=== PATIENT | male | born 1965 | race Caucasian/White ===

== ENCOUNTER 2025-03-03 16:41 | Emergency (ER) | payer MEDICARE, SELFPAY ==
[2025-03-03 16:43] VITALS: BP 149/89; PULSE 83; RESP 17; TEMP 36.8; O2SAT 97; BMI 33.7
--- NOTE | 2025-03-03 16:46 | ECG_ITS ---
APPROVED REPORT Exam: Resting ECG HR:84 bpm ECG Measurements Heart Rate 84 AXES IA 320 P -89 QRSd 197 QRS -81 QT 460 T 87 QTc 501 Conclusion ELECTRONIC ATRIAL PACEMAKER ELECTRONIC VENTRICULAR PACEMAKER No STEMI Electronically signed by : AVIVA NUNEZ, 03/03/2025 20:02:28
[2025-03-03 17:01] LABS: Basophils # 0.1 K/mm3 (0-0.2); Basophils % 0.8 % (0.1-2.0); Eosinophils # 0.4 Kmm3 (0.0-0.4); Eosinophils % 5.2 % (0.1-12.0); Hematocrit 46.7 % (42.0-52.0); Hemoglobin 14.8 g/dL (14.1-18.0); Immature Granulocytes # 0.02 10^3uL; Immature Granulocytes % 0.3 %; Lymphocytes % 41.5 % (10-50); Mean Corpuscular HGB Conc 31.7 g/dL (31.8-35.4); Mean Corpuscular Volume 88.4 fl (80-94); Mean Platelet Volume 9.7 fl (7.4-10.4); Monocytes # 0.6 K/mm3 (0.1-1.0); Monocytes % 8.5 % (1.7-9.3); Neutrophils # 3.1 K/mm3 (1.8-7.8); Neutrophils % 43.7 % (37.0-80.0); Nucleated Red Blood Cells # 0 10^3/uL; Nucleated Red Blood Cells % 0 %; Platelet Count 193 K/mm3 (142-424); Red Blood Count 5.28 M/mm3 (4.60-6.20); Red Cell Distribution Width 13.4 % (11.5-17.5); Red Cell Distribution Width-SD 43.2 fL; White Blood Count 7.2 K/mm3 (4.8-10.8)
[2025-03-03 17:10] LABS: Alanine Aminotransferase 59 U/L (12-78); Albumin Level 4.5 g/dl (3.5-5.0); Albumin/Globulin Ratio 1.3 (1.1-1.8); Alkaline Phosphatase 102 U/L (38-126); Anion Gap 9.3 mEq/L (5-15); Aspartate Amino Transferase 58 U/L (17-59); Bilirubin,Total 0.6 mg/dl (0.2-1.3); Blood Urea Nitrogen 25 mg/dl (9-20); Calcium 9.5 mg/dl (8.4-10.2); Carbon Dioxide 31 mmol/L (22.0-30.0); Chloride 105 mmol/L (98-107); Creatinine Clearance Estimated 81 mL/min (50-200); Estimated Glomerular Filt Rate 48 ml/min (>60); GFR (African American) 58 ML/MIN (>60); Globulin 3.4 g/dL (1.3-3.2); Glucose 104 mg/dl (74-100); Potassium 4.3 mmoL/L (3.5-5.1); Sodium 141 mmol/L (136-145); Total Protein,Serum 7.9 g/dl (6.3-8.2)
[2025-03-03 17:24] LABS: Troponin I < 0.01 ng/ml (0.00-0.034)
--- NOTE | 2025-03-03 17:57 | ED_ITS ---
<Statement entered by Elsie Brooks DO - 03/03/25 18:57> I was consulted by the SOL, and we discussed the complexity of the problems being addressed. I approved the treatment and management plan for this patient's care in the emergency department, thus performing a substantive portion of the medical decision making. Elsie Brooks DO Discharge Plan Disposition Patient Disposition: Home, Self-Care Chief Complaint: Arrhythmia/Palpitations Referrals Follow up/Referrals: Provider,Referral, MD [Primary Care Provider] - See instructions Activity Restrictions/Add. Instructions Additional Instructions/Restrictions: You are seen in the emergency department this evening with complaints of hypopressure and palpitations. Take medications as prescribed. Return to the ER if your condition worsens. Clinical Impressions Clinical Impression: Palpitations, Hypertension Instructions Patient Instructions: High Blood Pressure Print Language Print Language: Greenlandic Discharge ED Provider: Elsie Brooks General Adult HPI <Sabrina Baumann APRN - Last Filed: 03/03/25 18:24> General Chief complaint: Arrhythmia/Palpitations Stated complaint: heart palpitations, high b/p, his. of heart issues Time Seen by Provider: 03/03/25 17:49 Mode of Arrival: Ambulatory Source of Information: Patient Description of Symptoms (Recalled from ER Triage Doc. by RN): pt to the ED with HTN and heart palpitations since this morning. pt went to cardiology office this morning with these complaints and called him in amlodipine. pt hasnt gotten meds yet. pt denies any chest pain at this time History of Present Illness HPI narrative: Deniz Deleon is a 60-year-old male who presents emergency room today with complaints of palpitations and high blood pressure. Mr. Mckeon presented to Dr. Santiago's office with cardiology this morning with the same complaints. He states that they took his blood pressure and it was apparently in the 190 systolic. They called him in some amlodipine and sent him home from the office. Patient decided to come evaluated the emergency room as his blood pressure continued to stay elevated at home, did not picker packer his medications at the pharmacy. Denies any chest pain or shortness of breath at this time. Blood pressure noted to be 140s over 80s, heart rate in the 80s. Denies any fever, cough, abdominal pain. No other complaints at this time. Please note that the above description of symptoms, and this electronic medical record under categorization of recalled from ER triage doctor by RN are reflective of an initial nursing assessment, however, is not reflective of my full history and physical exam that was personally taken and clarified. Consequentially, this proceeding description of symptoms, which may include the patient's cauterized chief complaint in the EMR, do not reflect my personal clinical impression, and the ultimate description of the history of present illness stated complaints should be deferred to this section of this note. Unless stated otherwise were congruent with the section of the note, additional signs, symptoms, or incongruence can be interpreted as in or accurate with my clinical impression. Related Data Allergies Allergy/AdvReac Type Severity Reaction Status Date / Time No Known Allergies Allergy Verified 03/03/25 16:47 PFSH <Sabrina Baumann APRN - Last Filed: 03/03/25 18:24> [facility] Disclaimer: The information contained in this section may have been updated after the patient was seen, as this information can be updated by other users. Social History Smoking Status: Smoker, status unknown alcohol intake: never current occupational status: employed Travel in the last 8 weeks?: Inside the [place] <Sabrina Baumann APRN - Last Filed: 03/03/25 18:24> ROS Obtained: Yes Systems reviewed as appropriate & no additional complaints except as documented Physical Exam <Sabrina Baumann APRN - Last Filed: 03/03/25 18:24> General General appearance: alert and in no apparent distress Head Head exam: atraumatic and normocephalic Eye Eye exam: Present PERRL and EOMI Neck Neck exam: Present trachea midline Chest Chest inspection: Present symmetric chest wall rise Respiratory Respiratory exam: Present normal lung sounds bilaterally Cardiovascular Cardiovascular exam: Present regular rate and normal rhythm Abdominal Exam Abdominal exam: Present soft and normal bowel sounds; Absent tenderness Extremities Exam Extremities exam: Present normal inspection and full ROM Neurological Exam Neurological exam: Present alert and oriented X3 Skin Skin exam: Present warm, dry and intact Medical Decision Making <Sabrina Baumann APRN - Last Filed: 03/03/25 18:24> Medical Records Screening: Per USPSTF and CDC recommendations, given the prevalence of disease in our region, it is our hospital?s policy to screen for HIV and viral Hepatitis for all patients aged 18 and over and those with ongoing risk factors. [place] Inquiry Pt receiving controlled substance: No Vital Signs: 03/03/25 16:43 Temperature 98.3 F Temperature Source Oral Pulse Rate [Left Radial] 83 Respiratory Rate 17 Blood Pressure [Right Arm] 149/89 H Blood Pressure Mean [Right Arm] 109 Blood Pressure Source [Right Arm] Automatic Cuff Blood Pressure Position [Right Arm] Sitting 02 Sat by Pulse Oximetry 97 Oxygen Delivery Method Room Air Lab Data Lab Results 03/03/25 16:47: WBC 7.2, RBC 5.28, Hgb 14.8, Hct 46.7, MCV 88.4, MCH 28.0, MCHC 31.7 L, RDW 13.4, Plt Count 193, MPV 9.7, Neut % (Auto) 43.7, Lymph % (Auto) 41.5, Petroleum % (Auto) 8.5, Eos % (Auto) 5.2, Baso % (Auto) 0.8, Neut # (Auto) 3.1, Lymph # (Auto) 3.0, Petroleum # (Auto) 0.6, Eos # (Auto) 0.4, Baso # (Auto) 0.1, Sodium 141, Potassium 4.3, Chloride 105, Carbon Dioxide 31 H, Anion Gap 9.3, BUN 25 H, Creatinine 1.50 H, Estimated Creat Clear 81, Estimated GFR 48 L, Est GFR ( Amer) 58 L, Glucose 104 H, Calcium 9.5, Total Bilirubin 0.6, AST 58, ALT 59, Alkaline Phosphatase 102, Troponin I < 0.01, Total Protein 7.9, Albumin 4.5, Globulin 3.4 H, Albumin/Globulin Ratio 1.3 03/03/25 16:47 03/03/25 16:47 Orders (Tests/Meds): ORDERS Category Date Time Status Complete Blood Count Auto Diff Stat Lab 03/03/25 16:47 Completed Comprehensive Metabolic Panel Stat Lab 03/03/25 16:47 Completed Troponin I Q3H Lab 03/03/25 20:00 Ordered Troponin I Q3H Lab 03/03/25 23:00 Ordered Troponin I Stat Lab 03/03/25 16:47 Completed EKG Request [ECG Request] Stat Y 03/03/25 16:48 Ordered Medical Decision Narrative: In summary patient is an 60-year-old male who presents emergency department for evaluation of palpitations and high blood pressure. Patient is hemodynamically stable upon arrival, afebrile. Physical exam was unremarkable, patient is sinus rhythm on his EKG, no ST elevation or depression noted. Differential diagnosis includes ACS versus pneumonia versus arrhythmia. Initial workup will be conducted with hematologic labs, chest x-ray, EKG. Initial interventions are not indicated at this time as patient has stable vital signs and a stable EKG, with no complaints. Initial workup reviewed by me showed a stable hematologic profile. Patient does have an elevated BUN/creatinine of 25-1.5 which he states is where his baseline renal function is. EKG showed a paced rhythm. Chest x-ray was considered but deferred at this time as patient is not complaining of any shortness of breath, cough, fever, not requiring oxygen. Upon repeat evaluation patient's blood pressure normalized on its own without any medication intervention. Patient tells me that his pharmacy notified him that his prescription was ready to be picked up and he will pick that up and begin taking it this evening.. Given this, patient is appropriate for discharge at this time with no new prescriptions. He knows to go picker packer his prescription for his amlodipine at [facility] this evening. Patient was given return precautions to include but not limited to chest pain, shortness of breath, worsening of any of his symptoms. <Elsie Brooks, DO - Last Filed: 03/03/25 18:05> Vital Signs: 03/03/25 16:43 Temperature 98.3 F Temperature Source Oral Pulse Rate [Left Radial] 83 Respiratory Rate 17 Blood Pressure [Right Arm] 149/89 H Blood Pressure Mean [Right Arm] 109 Blood Pressure Source [Right Arm] Automatic Cuff Blood Pressure Position [Right Arm] Sitting 02 Sat by Pulse Oximetry 97 Oxygen Delivery Method Room Air Lab Data Lab Results 03/03/25 16:47: WBC 7.2, RBC 5.28, Hgb 14.8, Hct 46.7, MCV 88.4, MCH 28.0, MCHC 31.7 L, RDW 13.4, Plt Count 193, MPV 9.7, Neut % (Auto) 43.7, Lymph % (Auto) 41.5, Petroleum % (Auto) 8.5, Eos % (Auto) 5.2, Baso % (Auto) 0.8, Neut # (Auto) 3.1, Lymph # (Auto) 3.0, Petroleum # (Auto) 0.6, Eos # (Auto) 0.4, Baso # (Auto) 0.1, Sodium 141, Potassium 4.3, Chloride 105, Carbon Dioxide 31 H, Anion Gap 9.3, BUN 25 H, Creatinine 1.50 H, Estimated Creat Clear 81, Estimated GFR 48 L, Est GFR ( Amer) 58 L, Glucose 104 H, Calcium 9.5, Total Bilirubin 0.6, AST 58, ALT 59, Alkaline Phosphatase 102, Troponin I < 0.01, Total Protein 7.9, Albumin 4.5, Globulin 3.4 H, Albumin/Globulin Ratio 1.3 Orders (Tests/Meds): ORDERS Category Date Time Status Complete Blood Count Auto Diff Stat Lab 03/03/25 16:47 Completed Comprehensive Metabolic Panel Stat Lab 03/03/25 16:47 Completed Troponin I Q3H Lab 03/03/25 20:00 Ordered Troponin I Q3H Lab 03/03/25 23:00 Ordered Troponin I Stat Lab 03/03/25 16:47 Completed EKG Request [ECG Request] Stat Y 03/03/25 16:48 Ordered ECG Data Tracing #1: I reviewed this ECG and interpreted as documented below: Paced at a rate of [address] changes concerning for STEMI ECG initial impression date: 03/03/25 ECG initial impression time: 16:52 Critical Care <Sabrina Baumann APRN - Last Filed: 03/03/25 18:24> Critical Care Time Critical Care Time: No
[2025-03-03 18:34] VITALS: BP 140/79; PULSE 72; RESP 20; TEMP 36.3; O2SAT 98
== END 2025-03-03 18:35 | disposition home or self-care (01) ==
PROVIDERS: Emergency Provider Emergency Medicine
DX: R00.2 Palpitations (principal); I10 Essential (primary) hypertension
CPT/HCPCS: 80053; 84484; 85025; 93005; 99283

== ENCOUNTER 2025-04-08 16:46 | Emergency (ER) | payer MEDICARE, SELFPAY ==
[2025-04-08] VITALS (9 sets, daily range): BP systolic 130–193; BP diastolic 85–122; PULSE 55–95; RESP 13–18; TEMP 36.9–37.1; O2SAT 93–100; BMI 31.7
--- NOTE | 2025-04-08 16:51 | ECG_ITS ---
APPROVED REPORT Exam: Resting ECG HR:69 bpm ECG Measurements Heart Rate 69 AXES OR 258 P 11 QRSd 188 QRS -38 QT 461 T 47 QTc 481 Conclusion ELECTRONIC ATRIAL PACEMAKER LEFT AXIS DEVIATION [QRS AXIS < -30] RIGHT BUNDLE BRANCH BLOCK [120+ ms QRS DURATION, UPRIGHT V1, 40+ ms S IN I/aVL/V4/V5/V6] SEPTAL MYOCARDIAL INFARCTION , OF INDETERMINATE AGE [40+ ms Q WAVE IN V1/V2] ABNORMAL ECG UNCONFIRMED REPORT Electronically signed by : Christopher Vazuqez, 04/08/2025 21:38:14
--- NOTE | 2025-04-08 16:56 | PC.NURSE ---
Called Radiology and had images powershared to [facility]. Had Disc copy made and printed the scan reulsts for this pt to follow up with her PCP.
--- OUTSIDE RECORDS SUMMARY | 2025-04-08 16:57 | XMS_ITS | Clinical Summary ---
Author Organization [facility] Address [address] [place] [address] Care Team Providers Care Food Service Cashier Name Role Phone Unavailable Primary Care Provider Unavailabl e Allergies No known active allergies Medications allopurinoL (ZYLOPRIM) 100 mg tablet Take 100 mg by mouth Once Daily. Active atorvastatin (LIPITOR) 80 mg tablet Take 80 mg by mouth At bedtime. Active bictegrav-emtr icit-tenofov alafenam (BIKTARVY) 50-200-25 mg tablet Take 1 Tablet by mouth Once Daily. Active buPROPion (WELLBUTRIN) 300 mg XL tablet Take 300 mg by mouth Once Daily. Active clopidogreL (PLAVIX) 75 mg tablet Take 75 mg by mouth Once Daily. Active furosemide (LASIX) 20 mg tablet Take 20 mg by mouth Once Daily. Active lisinopriL (PRINIVIL) 40 mg tablet Take 40 mg by mouth Once Daily. Active rivaroxaban (XARELTO) 20 mg tablet Take 20 mg by mouth Once Daily. Active B complex-vitami n C-folic acid (NEPHROVITE RX) tablet Take 1 Tablet by mouth Once Daily. Active evolocumab (REPATHA SYRINGE) 140 mg/mL Syrg Administer 140 mg subcutaneously Every two weeks. Active levomilnacipra n 80 mg Cs24 Take 80 mg by mouth Once Daily. Active metoprolol (LOPRESSOR) 25 mg tablet Take 12.5 mg by mouth Twice a day. Active Active Problems Problem Noted Date Diagnosed Date Malfunction of electrode lead of cardiac pacemak er 02/06/2025 PAF (paroxysmal atrial fibrillation) 02/05/2025 Tachycardia 02/04/2025 Persistent atrial fibrillation 02/04/2025 S/P ablation of atrial fibrillation 02/04/2025 Overview (02/04/2025): X 2 in [place] Asymptomatic HIV infection, with no history of HIV-related illness 02/04/2025 Encounters Date Type Department Care Team Description 02/05/2025 1:00 PM EDT Office Visit [facility] [address], [address] [place] [address] Larry Lezama MD Tachycardia (Primary Dx); Persistent atrial fibrillation (HCC); S/P ablation of atrial fibrillation; Asymptomatic HIV infection, with no history of HIV-related illness (HCC); PAF (paroxysmal atrial fibrillation) (HCC); Malfunction of electrode lead of cardiac pacemaker 02/05/2025 Travel 01/30/2025 Transcribe Orders Patient [facility] [address] [place] [address] Shahriar Harley MD Unspecified atrial flutter (HCC) (Primary Dx); Presence of cardiac pacemaker from Last 3 Months Social History Tobacco Use Types Packs/Day Years Used Date Smoking Tobacco: Every Day Cigarettes PHQ-2 Answer Date Recorded PHQ-2 SCORE 0 02/05/2025 Sex and Gender Information Value Date Recorded Sex Assigned at Not on file Legal Sex Male 4:09 PM EDT Gender Identity Not on file Sexual Orientation Not on file Last Filed Vital Signs Vital Sign Reading Time Taken Comments Blood Pressure 136/70 02/05/2025 12:49 PM EDT Pulse 80 02/05/2025 12:49 PM EDT Temperature - - Respiratory Rate 18 02/05/2025 12:49 PM EDT Oxygen Saturation 97% 02/05/2025 12:49 PM EDT Inhaled Oxygen Concentration - - Weight 94.3 kg (208 lb) 02/05/2025 12:49 PM EDT Height 182.9 cm (6') 02/05/2025 12:49 PM EDT Body Mass Index 28.21 02/05/2025 12:49 PM EDT Plan of Treatment Upcoming Encounters Date Type Department Care Team (Late st Contact Info) Description 04/17/2025 2:00 PM EDT Hospital Encounter MAIN [facility] [address] [place] [address] Larry Lezama MD [address] [place] [address] [address] [place] [address] 05/19/2025 Hospital Encounter EP Lab [address] [place] [phone] Larry Lezama MD [address] [place] [address] [address] [place] [address] Scheduled Procedures Name Priority Associated Diagnoses Date/Ti me EP/ABL AFIB/PVI PAF (paroxysmal atrial fibrillation) (HCC) Health Maintenance Due Date Last Done Comments COLOGUARD 1965 COLONOSCOPY 1965 Colorectal Screening Combination 1965 FIT 1965 HEP C SCREENING 1965 SIGMOIDOSCOPY 1965 ANNUAL WELLNESS EXAM 02/13/1968 DTAP/TDAP/TD VACCINE (1 - Tdap) 02/13/1984 Shingles Vaccine (Shingrix) (1 of 2) 2015 INFLUENZA VACCINE (#1) 2025 HEP A VACCINE Aged Out No longer elig ible based on patient's age to complete this topic HIB VACCINE Aged Out No longer eligi ble based on patient's age to complete this topic ROTOVIRUS VACCINE Aged Out No longer eligible based on patient's age to complete this topic Procedures Procedure Name Priority Date/Time Associated Diagnosis Comments EKG 12-LEAD Routine 02/05/2025 1:04 PM EDT Persistent atrial fibrillation (HCC) from Last 3 Months Results * 12 Lead EKG Same Visit (02/05/2025 1:04 PM EDT) 02/05/2025 1:04 PM EDT Narrative EPIPHANY - 02/06/2025 2:37 PM EDT [facility] [place] [address] Test Date: 2025-02-05 Pat Name: DENIZ LIMONUE Department: [facility] Room: Gender: Male Money Market Clerk: : 1965 Requested By: LARRY Rich Order Number: [id number] Reading MD: Larry Lezama MD Measurements Intervals [place] Rate: 80 P: 33 WV: 235 QRS: -57 QRSD: 184 T: 29 QT: 424 QTc: 489 Interpretive Statements: ELECTRONIC ATRIAL PACEMAKER RIGHT BUNDLE BRANCH BLOCK [120+ ms QRS DURATION, UPRIGHT V1, 40+ ms S IN I/aVL/V4/V5/V6] LEFT ANTERIOR FASCICULAR BLOCK [QRS AXIS <= -45, QR IN I, RS IN II] SEPTAL MYOCARDIAL INFARCTION [40+ ms Q WAVE IN V1/V2], OF INDETERMINATE AGE INTERPRETATION BASED ON A DEFAULT AGE OF 40 YEARS No previous ECG available for comparison Electronically Signed On 02-06-2025 14:37:29 EDT by Larry Lezama MD Procedure Note Larry Lezama MD - 02/06/2025 [facility] [place] [address] Test Date: 2025-02-05 Pat Name: DENIZ MCKEON Department: [facility] Room: Gender: Male Money Market Clerk: : 1965 Requested By: LARRY Rich Order Number: [id number] Reading MD: Larry Kowalski Measurements Intervals [place] Rate: 80 P: 33 WV: 235 QRS: -57 QRSD: 184 T: 29 QT: 424 QTc: 489 Interpretive Statements: ELECTRONIC ATRIAL PACEMAKER RIGHT BUNDLE BRANCH BLOCK [120+ ms QRS DURATION, UPRIGHT V1, 40+ ms S IN I/aVL/V4/V5/V6] LEFT ANTERIOR FASCICULAR BLOCK [QRS AXIS <= -45, QR IN I, RS IN II] SEPTAL MYOCARDIAL INFARCTION [40+ ms Q WAVE IN V1/V2], OF INDETERMINATEAGE INTERPRETATION BASED ON A DEFAULT AGE OF 40 YEARS No previous ECG available for comparison Electronically Signed On 02-06-2025 14:37:29 EDT by Larry Lezama MD us Larry Lezama MD EKG ORDERABLES Final Resul t EPIPHANY from Last 3 Months Insurance [employer]
--- NOTE | 2025-04-08 17:01 | XR_ITS ---
PROCEDURE INFORMATION: Exam: XR Chest Exam date and time: 04/08/2025 5:20 PM Age: 60 years old Clinical indication: Chest wall pain; Prior surgery; Surgery date: 6+ months; Surgery type: Heart stents; Additional info: Cp SOA TECHNIQUE: Imaging protocol: Radiologic exam of the chest. Views: 1 view. COMPARISON: No relevant prior studies available. FINDINGS: Tubes, catheters and devices: A 2 lead internal cardiac device implanted at the left chest with leads extending to the right heart. Lungs: Pleuroparenchymal scarring of the lung bases with subsegmental atelectasis is present without consolidations or pleural effusions that project above the diaphragm. Pleural spaces: Unremarkable. No pleural effusion. No pneumothorax. Heart/Mediastinum: Unremarkable. No cardiomegaly. Bones/joints: Unremarkable. IMPRESSION: Pleuroparenchymal scarring of the lung bases with subsegmental atelectasis is present without consolidations or pleural effusions that project above the diaphragm.
[2025-04-08 17:05] LABS: Hematocrit 44.3 % (42.0-52.0); Hemoglobin 14.9 g/dL (14.1-18.0); Immature Granulocytes % 0.3 %; Mean Corpuscular HGB Conc 33.6 g/dL (31.8-35.4); Mean Corpuscular Hemoglobin 29.0 pg (27.0-31.2); Mean Corpuscular Volume 86.4 fl (80-94); Nucleated Red Blood Cells % 0 %; Platelet Count 190 K/mm3 (142-424); Red Blood Count 5.13 M/mm3 (4.60-6.20); Red Cell Distribution Width-SD 40.9 fL; White Blood Count 7.0 K/mm3 (4.8-10.8)
--- NOTE | 2025-04-08 17:20 | PC.NURSE ---
Radiology at bed side.
[2025-04-08 17:26] LABS: Alanine Aminotransferase 62 U/L (12-78); Albumin Level 4.8 g/dl (3.5-5.0); Albumin/Globulin Ratio 1.3 (1.1-1.8); Alkaline Phosphatase 119 U/L (38-126); Anion Gap 14.7 mEq/L (5-15); Aspartate Amino Transferase 66 U/L (17-59); Bilirubin,Total 0.6 mg/dl (0.2-1.3); Blood Urea Nitrogen 22 mg/dl (9-20); Calcium 9.9 mg/dl (8.4-10.2); Carbon Dioxide 26 mmol/L (22.0-30.0); Chloride 102 mmol/L (98-107); Creatinine Clearance Estimated 79 mL/min (50-200); Creatinine,Serum 1.50 mg/dl (0.66-1.25); Estimated Glomerular Filt Rate 48 ml/min (>60); GFR (African American) 58 ML/MIN (>60); Globulin 3.7 g/dL (1.3-3.2); Glucose 114 mg/dl (74-100); Potassium 4.7 mmoL/L (3.5-5.1); Sodium 138 mmol/L (136-145); Total Protein,Serum 8.5 g/dl (6.3-8.2)
[2025-04-08 17:36] LABS: NT Pro Brain Natriuretic Pep. 56.0 pg/mL (0-125)
[2025-04-08 17:39] LABS: Troponin I < 0.01 ng/ml (0.00-0.034)
--- NOTE | 2025-04-08 18:18 | ED_ITS ---
<Statement entered by Anabel Vazquez MD - 04/08/25 21:30> I was consulted by the SLO, and we discussed the complexity of the problems being addressed. I approved the treatment and management plan for this patient's care in the emergency department, thus performing a substantive portion of the medical decision making. Anabel Vazquez MD, SHANA, FACEP Discharge Plan Disposition Patient Disposition: Home, Self-Care Prescriptions Prescriptions: No Action atorvastatin 80 mg Tablet 80 mg PO DAILY amiodarone 200 mg Tablet 200 mg PO DAILY clopidogrel 75 mg Tablet 75 mg PO DAILY allopurinol 100 mg Tablet 100 mg PO DAILY levothyroxine 25 mcg Tablet 25 mcg PO DAILY amlodipine 10 mg Tablet 10 mg PO DAILY lisinopril 40 mg Tablet 40 mg PO DAILY bupropion HCl 300 mg Tablet Extended Release 24 Hr 300 mg PO DAILY Xarelto 20 mg Tablet 20 mg PO DAILY metoprolol khoury-hydrochlorothiaz 25-12.5 mg Tablet Extended Release 24 Hr 12.5 tab PO DAILY Fetzima 80 mg Capsule,Extended Release 24 Hr 80 mg PO DAILY Repatha SureClick 140 mg/mL Pen Injector 140 mg SQ DIRECTED Patient Comments: every 2 weeks Biktarvy 50-200-25 mg Tablet 1 tab PO DAILY Referrals Follow up/Referrals: Provider,Referral, [Primary Care Provider, Medical] - See instructions Activity Restrictions/Add. Instructions Additional Instructions/Restrictions: Today you are evaluated in the emergency department. Your workup was overall unremarkable. 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 Please return to the ED for worsening of condition. Clinical Impressions Clinical Impression: Chest pain Instructions Patient Instructions: DI for Chest Pain Print Language Print Language: Albanian Discharge ED Provider: Anabel Vazquez [facility] General Chief Complaint: Chest Pain Stated Complaint: CP Time Seen by Provider: 04/08/25 16:51 Mode of Arrival: Ambulatory Source of Information: Patient and Significant Other Description of Symptoms (Recalled from ER Triage Doc. by RN): PT presents to the ED for evaluation of Chest Pain. Pt stated his pain started 1 hour ago. Pt stated he has a rx for nitro but denies using any. Hx of 4 heart attacks. HX of 8 stints. PT has appt for heart ablation in May. PT has a pacemaker r/t A Fib. PT stated his pain is a 5/10. HX CHF. History of Present Illness HPI narrative: patient is a 60-year-old male PMHx multiple MIs, multiple cardiac stents, history of A-fib (anticoagulated), HLD, HTN who presents to the ED with complaints of chest pain. Rates his chest pain currently a 4 out of 10, at max 8 out of 10. Related Data Home Medications ?Medication ?Instructions ?Recorded ?Confirmed allopurinol 100 mg tablet 100 mg PO DAILY 04/08/2512/02 amiodarone 200 mg tablet 200 mg PO DAILY 04/08/2512/02 amlodipine 10 mg tablet 10 mg PO DAILY 04/08/2512/02 atorvastatin 80 mg tablet 80 mg PO DAILY 04/08/2512/02 bictegravir 50 mg-emtricitabine 1 tab PO DAILY 04/08/25 200 mg-tenofovir alafenam 25 mg tablet (Biktarvy) bupropion HCl 300 mg 24 hr tablet, 300 mg PO DAILY 12/0204/08/25 extended release clopidogrel 75 mg tablet 75 mg PO DAILY 04/08/2512/02 evolocumab 140 mg/mL subcutaneous 140 mg SQ DIRECTE D 04/08/25 04/08/25 pen injector (Repathniles SureGeeick) levomilnacipran 80 mg capsule,24 80 mg PO DAILY 04/08/25 hr,extended release (Fetzima) levothyroxine 25 mcg tablet 25 mcg PO DAILY 04/08/25 0 04/08/25 lisinopril 40 mg tablet 40 mg PO DAILY 04/08/2512/02 metoprolol succ 25 12.5 tab PO DAILY 04/08/25 0 04/08/25 mg-hydrochlorothiazide 12.5 mg tablet,ext.rel 24 hr rivaroxaban 20 mg tablet (Xarelto) 20 mg PO DAILY 12/0204/08/25 Allergies Allergy/AdvReac Type Severity Reaction Status Date / Time No Known Allergies Allergy Verified 03/03/25 16:47 [facility] Disclaimer: The information contained in this section may have been updated after the patient was seen, as this information can be updated by other users. Social History (Updated 03/03/25 @ 18:24 by Sabrina Yund, [employer]) Smoking Status: Current every day smoker alcohol intake: never current occupational status: employed Travel in the last 8 weeks?: Inside the [place] Have you lived/traveled outside US in past 30 days?: No Contact w/someone who lives/traveled outside US past 30 days?: No Exposure to someone with infectious disease in past 14 days?: No Do you have a fever (greater than 100.4 F or 38 C)?: No Have you tested positive for COVID-19?: No Exposed to someone with COVID-19 in past 14 days?: No Do you have a sore throat?: No Do you have a cough?: No Do you have any weakness?: No Do you have any diarrhea?: No Are you experiencing any unusual bleeding?: No Do you have any muscle aches/pain?: No Do you have any abdominal pain?: No Are you experiencing loss of taste or smell?: No ROS Obtained: Yes Systems reviewed as appropriate & no additional complaints except as documented Physical Exam General General appearance: alert and in no apparent distress Head Head exam: atraumatic and normocephalic Eye Eye exam: Present normal appearance and PERRL ENT ENT exam: Present normal exam Neck Neck exam: Present normal inspection Chest Chest inspection: Present normal inspection and symmetric chest wall rise; Absent tenderness Respiratory Respiratory exam: Present normal lung sounds bilaterally Cardiovascular Cardiovascular exam: Present regular rate Abdominal Exam Abdominal exam: Present soft and normal bowel sounds; Absent tenderness Extremities Exam Extremities exam: Present normal inspection and full ROM Back Exam Back exam: Present normal inspection and full ROM Neurological Exam Neurological exam: Present alert and oriented X3 Psychiatric Psychiatric exam: Present normal affect and normal mood Skin Skin exam: Present warm and dry HEART Score HEART Score HEART Score assessment performed?: Yes History (anamnesis): Moderately suspicious ECG: Non-specific disturbance Age: 45-65 years Risk factors: 3 or more risk factors Troponin: </= normal limit HEART Score: 5 Critical Care Critical Care Time Critical Care Time: No Medical Decision Making Logan Inquiry Pt receiving controlled substance: No Logan was queried for this patient: No Vital Signs Vital Signs: 04/08/25 17:01 04/08/25 17:09 04/08/25 17:52 Temperature 98.4 F Temperature Source Oral Pulse Rate 95 H 60 Pulse Rate [Right] 95 H Respiratory Rate 18 18 Blood Pressure 130/86 Blood Pressure [Right Arm] 160/103 H Blood Pressure Mean [Right Arm] 122 02 Sat by Pulse Oximetry 97 99 Oxygen Delivery Method Room Air Room Air 04/08/25 18:30 04/08/25 19:01 04/08/25 19:31 Temperature Temperature Source Pulse Rate 79 55 L 60 Pulse Rate [Right] Respiratory Rate 17 13 18 Blood Pressure 137/93 H 147/113 H 134/85 Blood Pressure [Right Arm] Blood Pressure Mean [Right Arm] 02 Sat by Pulse Oximetry 97 99 100 Oxygen Delivery Method Room Air Room Air 04/08/25 20:01 Temperature Temperature Source Pulse Rate 67 Pulse Rate [Right] Respiratory Rate 18 Blood Pressure 143/90 H Blood Pressure [Right Arm] Blood Pressure Mean [Right Arm] 02 Sat by Pulse Oximetry 93 L Oxygen Delivery Method Lab Data Labs: Lab Results 04/08/25 16:51: WBC 7.0, RBC 5.13, Hgb 14.9, Hct 44.3, MCV 86.4, MCH 29.0, MCHC 33.6, RDW 13.2, Plt Count 190, MPV 9.6, Neut % (Auto) 52.0, Lymph % (Auto) 33.8, Grundy % (Auto) 7.3, Eos % (Auto) 5.6, Baso % (Auto) 1.0, Neut # (Auto) 3.6, Lymph # (Auto) 2.4, Grundy # (Auto) 0.5, Eos # (Auto) 0.4, Baso # (Auto) 0.1, Sodium 138, Potassium 4.7, Chloride 102, Carbon Dioxide 26, Anion Gap 14.7, BUN 22 H, C reatinine 1.50 H, Estimated Creat Clear 79, Estimated GFR 48 L, Est GFR ( Amer) 58 L, Glucose 114 H, Calcium 9.9, Total Bilirubin 0.6, AST 66 H, ALT 62, Alkaline Phosphatase 119, Troponin I < 0.01, NT-Pro-B Natriuret Pep 56.0, Total Protein 8.5 H, Albumin 4.8, Globulin 3.7 H, Albumin/Globulin Ratio 1.3 04/08/25 20:12: Troponin I < 0.01 04/08/25 16:51 04/08/25 16:51 Response Orders (Tests/Meds): ORDERS Category Date Time Status CXR --portable [XR chest portable] Stat Exams 07/02/25 17:01 Completed BNP [NT Pro Brain Natriuretic Pep.] Stat Lab 04/08/25 16:51 Completed CBC w/Auto Diff [Complete Blood Count Auto Diff] Stat Lab 04/08/25 16:51 Completed CMP [Comprehensive Metabolic Panel] Stat Lab 04/08/25 16:51 Completed Trop I [Troponin I] Stat Lab 04/08/25 16:51 Completed Troponin I Q3H Lab 04/08/25 20:12 Completed Troponin I Q3H Lab 04/08/25 23:15 Ordered MDM Narrative Medical Decision Narrative: In summary, patient is a 60-year-old male PMHx multiple MIs, multiple cardiac stents, history of A-fib (anticoagulated), HLD, HTN who presents to the ED with complaints of chest pain. Rates his chest pain currently a 4 out of 10, at max 8 out of 10. Has not taken any medication prior to arrival. Patient states that his chest pain is centrally located, feels like a dull ache and started 1 hour prior to arrival. Patient states he was sitting when the chest pain started. He states this does not feel like when he had his heart attack. Patient states the pain does not radiate into his back, neck or arms. He is not experienced any nausea or vomiting. He has had no recent trauma or falls. He states he has a pacemaker in place. Denies fever, chills, headache, visual disturbances, posterior neck pain, shortness of breath, abdominal pain, vomiting, dysuria. Differential diagnosis include ACS, dissection, pulmonary embolism, pneumonia, pneumothorax, electrolyte abnormality, among others Upon initial evaluation patient is alert, oriented and cooperative. He is hemodynamically stable. Physical exam is unremarkable, no chest wall tenderness. Patient is sinus rhythm. Discussed with patient we will proceed with cardiac workup including chest x- ray, he is agreeable to plan of care at this time. CBC unremarkable for any leukocytosis, stable H&H. CMP remarkable for BUN 22, creatinine 1.50, this is patient's baseline. First troponin < 0.01. While waiting on second troponin, patient states his chest pain has resolved. He remains hemodynamically stable. Informal interpretation of the chest x-ray unremarkable for any acute findings. Second troponin < 0.01. Advised patient his workup is overall unremarkable. He states he remains chest pain-free while in the ED. Given this, I feel the patient is safe to be discharged home. Discussed with patient to follow-up with cardiology. We discussed return precautions to the ED and patient verbalized understanding.
[2025-04-08 20:48] LABS: Troponin I < 0.01 ng/ml (0.00-0.034)
== END 2025-04-08 21:17 | disposition home or self-care (01) ==
PROVIDERS: Nurse Practitioner; Emergency Provider Student in an Organized Health Care Education/Training Program
DX: R07.9 Chest pain, unspecified (principal); F17.210 Nicotine dependence, cigarettes, uncomplicated; I10 Essential (primary) hypertension; I48.0 Paroxysmal atrial fibrillation; E78.5 Hyperlipidemia, unspecified; Z86.79 Personal history of other diseases of the circulatory system; Z79.01 Long term (current) use of anticoagulants
CPT/HCPCS: 71045; 80053; 83880; 84484; 85025; 93005; 99284

== ENCOUNTER 2025-09-23 08:40 | Emergency (ER) | payer MEDICARE, SELFPAY ==
[2025-09-23] VITALS (11 sets, daily range): BP systolic 100–165; BP diastolic 57–109; PULSE 65–91; RESP 14–15; TEMP 36.9; O2SAT 93–99; BMI 31.8
--- NOTE | 2025-09-23 09:03 | XR_ITS ---
FINAL REPORT CLINICAL HISTORY: Fall, left ankle pain/swelling FINDINGS: LEFT ANKLE 2 views of the left ankle were obtained. There is a comminuted, nondisplaced fracture of the distal fibular shaft. Lucency is seen at the posterior malleolus which could be degenerative or represent a nondisplaced fracture. The proximal tibia and fibula are intact. There are mild degenerative changes at the ankle mortise. Calcaneal spurring is noted. The joint spaces are intact. IMPRESSION: Comminuted, nondisplaced fracture of the distal fibular shaft. Lucency at the posterior malleolus which could be degenerative or may represent nondisplaced fracture. Reviewed, Interpreted and Dictated by Christian Mcfarland MD Transcribed by Katy Vela Authenticated and [facility]
--- NOTE | 2025-09-23 09:03 | XR_ITS ---
FINAL REPORT CLINICAL HISTORY: fall, left distal duval pain FINDINGS: LEFT TIBIA AND FIBULA There is a comminuted, nondisplaced fracture of the distal fibular shaft. Lucency is seen at the posterior malleolus which could be degenerative or represent a nondisplaced fracture. The proximal tibia and fibula are intact. There are mild degenerative changes at the ankle mortise. Calcaneal spurring is noted. The joint spaces are intact. IMPRESSION: Comminuted, nondisplaced fracture of the distal fibular shaft. Lucency at the posterior malleolus which could be degenerative or represent nondisplaced fracture. Reviewed, Interpreted and Dictated by Christian Mcfarland MD Transcribed by Katy Vela Authenticated and [facility]
--- NOTE | 2025-09-23 09:03 | XR_ITS ---
FINAL REPORT CLINICAL HISTORY: Fall, forefoot and great toe pain FINDINGS: LEFT FOOT 2 views of the left foot were obtained. Oblique lucency is seen through the first proximal phalanx. Fracture not excluded. Visualized joint spaces are normally aligned. Soft tissues are unremarkable. IMPRESSION: Oblique lucency through the first proximal phalanx. Fracture not excluded. Recommend dedicated views of the first digit. Reviewed, Interpreted and Dictated by Christian Mcfarland MD Transcribed by Katy Vela Authenticated and [facility]
--- NOTE | 2025-09-23 09:04 | HMH.EDGENADL ---
Discharge Plan Disposition Patient Disposition: Home, Self-Care Prescriptions Prescriptions: New oxycodone 5 mg tablet 5 mg PO Q6H PRN (Reason: pain) Qty: 12 0RF No Action atorvastatin 80 mg Tablet 80 mg PO DAILY amiodarone 200 mg Tablet 200 mg PO DAILY clopidogrel 75 mg Tablet 75 mg PO DAILY allopurinol 100 mg Tablet 100 mg PO DAILY levothyroxine 25 mcg Tablet 25 mcg PO DAILY amlodipine 10 mg Tablet 10 mg PO DAILY lisinopril 40 mg Tablet 40 mg PO DAILY bupropion HCl 300 mg Tablet Extended Release 24 Hr 300 mg PO DAILY Xarelto 20 mg Tablet 20 mg PO DAILY metoprolol khoury-hydrochlorothiaz 25-12.5 mg Tablet Extended Release 24 Hr 12.5 tab PO DAILY Fetzima 80 mg Capsule,Extended Release 24 Hr 80 mg PO DAILY Repatha SureClick 140 mg/mL Pen Injector 140 mg SQ DIRECTED Patient Comments: every 2 weeks Biktarvy 50-200-25 mg Tablet 1 tab PO DAILY Referrals Follow up/Referrals: Dre Li DO [Staff Physician, Orthopedics] - See instructions Provider,Referral, MD [Primary Care Provider, Medical] - See instructions Activity Restrictions/Add. Instructions Additional Instructions/Restrictions: Avoid bearing weight on your left leg. use the crutches to help you walk. You can take oxycodone as prescribed to help with your pain. In addition to this you can take Tylenol. Rest and elevate the leg when laying down. I encourage you to call the orthopedic office today to schedule your follow-up on Sunday. If you develop any new or worsening symptoms, such as numbness or tingling or color changes in the toes, or if you become concerned for your health for any reason, return to the emergency department for evaluation. Clinical Impressions Clinical Impression: Fracture of distal end of fibula, Closed fracture of left great toe, Closed fracture of posterior malleolus Print Language Print Language: Kiswahili Discharge ED Provider: Kuldeep Ramires General Adult HPI General Chief complaint: Fall Stated complaint: [email or web address]/[email or web address], pain in Lt leg, syncope, nausea Time Seen by Provider: 09/23/25 08:55 History of Present Illness HPI narrative: Deniz Mckeon is a 60-year-old male with a past medical history of heart failure, coronary artery disease, cardiac stents on Plavix and Xarelto, hypertension, hyperlipidemia who presents to the emergency department after a fall yesterday. Patient states that he was stepping out of his RV and was 2 steps up when he slipped on ice. He states that his left leg got caught behind him and he heard a crack/snap in his left ankle area. He landed on his left side. He denies any head trauma or loss of consciousness. He has been unable to bear weight on his left leg due to pain from the distal left duval to the foot. He took 2 Exer strength Tylenol last night and elevating the leg without relief. He does state that he has been nauseated since the fall but denies any loss of consciousness or neck pain. He denies any chest pain or shortness of breath. Related Data Home Medications ?Medication ?Instructions ?Recorded ?Confirmed allopurinol 100 mg tablet 100 mg PO DAILY 04/08/25 04/08/25 amiodarone 200 mg tablet 200 mg PO DAILY 04/08/25 04/08/25 amlodipine 10 mg tablet 10 mg PO DAILY 04/08/25 04/08/25 atorvastatin 80 mg tablet 80 mg PO DAILY 04/08/25 04/08/25 bictegravir 50 mg-emtricitabine 1 tab PO DAILY 04/08/25 04/08/25 200 mg-tenofovir alafenam 25 mg tablet (Biktarvy) bupropion HCl 300 mg 24 hr tablet, 300 mg PO DAILY 04/08/25 04/08/25 extended release clopidogrel 75 mg tablet 75 mg PO DAILY 04/08/25 04/08/25 evolocumab 140 mg/mL subcutaneous 140 mg SQ DIRECTED 04/08/25 04/08/25 pen injector (Emelina Celaya) levomilnacipran 80 mg capsule,24 80 mg PO DAILY 04/08/25 04/08/25 hr,extended release (Fetzima) levothyroxine 25 mcg tablet 25 mcg PO DAILY 04/08/25 04/08/25 lisinopril 40 mg tablet 40 mg PO DAILY 04/08/25 04/08/25 metoprolol succ 25 12.5 tab PO DAILY 04/08/25 04/08/25 mg-hydrochlorothiazide 12.5 mg tablet,ext.rel 24 hr rivaroxaban 20 mg tablet (Xarelto) 20 mg PO DAILY 04/08/25 04/08/25 Previous Rx's ?Medication ?Instructions ?Recorded oxycodone 5 mg tablet 5 mg PO Q6H PRN pain #12 tabs 09/23/25 Allergies Allergy/AdvReac Type Severity Reaction Status Date / Time No Known Allergies Allergy Verified 03/03/25 16:47 [facility] Disclaimer: The information contained in this section may have been updated after the patient was seen, as this information can be updated by other users. Social History (Updated 03/03/25 @ 18:24 by Sabrina Baumann APRN) Smoking Status: Current every day smoker alcohol intake: never current occupational status: employed Travel in the last 8 weeks?: Inside the [place] Have you lived/traveled outside US in past 30 days?: No Contact w/someone who lives/traveled outside US past 30 days?: No Exposure to someone with infectious disease in past 14 days?: No Do you have a fever (greater than 100.4 F or 38 C)?: No Have you tested positive for COVID-19?: No Exposed to someone with COVID-19 in past 14 days?: No Do you have a sore throat?: No Do you have a cough?: No Do you have any weakness?: No Do you have any diarrhea?: No Are you experiencing any unusual bleeding?: No Do you have any muscle aches/pain?: No Do you have any abdominal pain?: No Are you experiencing loss of taste or smell?: No ROS Obtained: Yes Systems reviewed as appropriate & no additional complaints except as documented Physical Exam General General appearance: alert and in no apparent distress Head Head exam: atraumatic Eye Eye exam: Present normal appearance ENT ENT exam: Present normal external ear exam Neck Neck exam: Present full ROM Chest Chest inspection: Present symmetric chest wall rise Respiratory Respiratory exam: Present normal lung sounds bilaterally; Absent respiratory distress Cardiovascular Cardiovascular exam: Present regular rate and normal rhythm Abdominal Exam Abdominal exam: Present soft; Absent tenderness or guarding exam: Present deferred Extremities Exam Extremities exam: Present normal inspection Expanded Lower Extremity Exam Left: Leg image:  1. Swelling, tenderness. Limited range of motion at the ankle secondary to pain. Bruising noted to the great toe. Sensation grossly intact to the foot. 2+ DP pulses intact. Back Exam Back exam: Present normal inspection Neurological Exam Neurological exam: Present alert and oriented X3 Psychiatric Psychiatric exam: Present normal affect Skin Skin exam: Present warm and dry Medical Decision Making Medical Records Screening: Per USPSTF and CDC recommendations, given the prevalence of disease in our region, it is our hospital?s policy to screen for HIV and viral Hepatitis for all patients aged 18 and over and those with ongoing risk factors. Logan Inquiry Pt receiving controlled substance: Yes Logan was queried for this patient: Yes Risks and benefits of using a controlled substance: were discussed with pt by me Vital Signs: 09/23/25 08:51 09/23/25 09:00 09/23/25 09:30 Temperature 98.4 F Temperature Source Oral Pulse Rate 91 H 78 Pulse Rate [Left Radial] 78 Respiratory Rate 15 Blood Pressure 100/70 L 155/85 H Blood Pressure [Left Arm] 123/81 Blood Pressure Mean [Left Arm] 95 Blood Pressure Source Blood Pressure Source [Left Arm] Automatic Cuff Blood Pressure Position Blood Pressure Position [Left Arm] Sitting 02 Sat by Pulse Oximetry 98 99 98 Oxygen Delivery Method Room Air 09/23/25 10:01 09/23/25 10:30 09/23/25 11:00 Temperature Temperature Source Pulse Rate 86 79 76 Pulse Rate [Left Radial] Respiratory Rate Blood Pressure 149/105 H 165/109 H 145/66 H Blood Pressure [Left Arm] Blood Pressure Mean [Left Arm] Blood Pressure Source Blood Pressure Source [Left Arm] Blood Pressure Position Blood Pressure Position [Left Arm] 02 Sat by Pulse Oximetry 95 97 97 Oxygen Delivery Method Room Air 09/23/25 11:30 09/23/25 12:00 09/23/25 12:30 Temperature Temperature Source Pulse Rate 73 90 79 Pulse Rate [Left Radial] Respiratory Rate Blood Pressure 127/57 L 139/84 120/65 Blood Pressure [Left Arm] Blood Pressure Mean [Left Arm] Blood Pressure Source Blood Pressure Source [Left Arm] Blood Pressure Position Blood Pressure Position [Left Arm] 02 Sat by Pulse Oximetry 95 96 93 L Oxygen Delivery Method 09/23/25 13:00 09/23/25 13:20 Temperature 98.5 F Temperature Source Oral Pulse Rate 65 91 H Pulse Rate [Left Radial] Respiratory Rate 14 Blood Pressure 127/92 H Blood Pressure [Left Arm] Blood Pressure Mean [Left Arm] Blood Pressure Source Automatic Cuff Blood Pressure Source [Left Arm] Blood Pressure Position Sitting Blood Pressure Position [Left Arm] 02 Sat by Pulse Oximetry 93 L Oxygen Delivery Method Room Air Orders (Tests/Meds): ED MEDICATIONS Discontinued Medications Generic Name Dose Route Start Last Admin Trade Name Claudia PRN Reason Stop Dose Admin Ondansetron HCl 4 mg 09/23/25 09:03 09/23/25 09:28 Ondansetron 4mg Odt SL 09/23/25 09:04 4 mg ONCE ONE Administration Oxycodone HCl 5 mg 09/23/25 09:04 09/23/25 09:27 Oxycodone 5mg Immediate Release Tablet PO 09/23/25 09:05 5 mg ONCE ONE Administration Oxycodone HCl 5 mg 09/23/25 10:58 09/23/25 11:05 Oxycodone 5mg Immediate Release Tablet PO 09/23/25 10:59 5 mg ONCE ONE Administration ORDERS Category Date Time Status Ankle XR - Left 2 Views [XR ankle LT 2V] Stat Exams 09/23/25 09:03 Completed Fibula/tibia XR left 2 views [XR tibia fibula LT 2V] Exams 09/23/25 09:03 Completed Stat Foot XR left 2 views [XR foot LT 2V] Stat Exams 09/23/25 09:03 Completed Medical Decision Narrative: Deniz Mckeon is a 60-year-old male with a past medical history of heart failure, coronary artery disease, cardiac stents on Plavix and Xarelto, hypertension, hyperlipidemia who presents to the emergency department after a fall yesterday. Patient states that he was stepping out of his RV and was 2 steps up when he slipped on ice. He states that his left leg got caught behind him and he heard a crack/snap in his left ankle area. He landed on his left side. He denies any head trauma or loss of consciousness. He has been unable to bear weight on his left leg due to pain from the distal left duval to the foot. He took 2 Exer strength Tylenol last night and elevating the leg without relief. He does state that he has been nauseated since the fall but denies any loss of consciousness or neck pain. He denies any chest pain or shortness of breath. On arrival, patient is hemodynamically stable, afebrile, breathing comfortably on room air with appropriate oxygen saturation. Physical exam, stated above, revealed a nontoxic-appearing male in no distress. He has tenderness, swelling to the distal left anterior duval and bilateral malleoli and forefoot. He has tenderness and bruising to the left great toe. Sensation is grossly intact to the foot. Pulses intact. Limited range of motion at the ankle secondary to pain. He has a small superficial abrasion over the left patellar area but nontender proximal to the duval. Cardiopulmonary exam is unremarkable. He has no midline cervical spine tenderness and no evidence of head trauma. Differential diagnosis includes, but is not limited to: Fracture, dislocation, soft tissue injury, among others. The most morbid conditions were considered and workup was based on these. Will obtain x-ray imaging of the left tib-fib, ankle and foot and administer 5 mg of oxycodone as well as 4 mg sublingual Zofran. X-ray imaging was interpreted by me personally. Patient has a comminuted nondisplaced fracture of the distal fibular shaft. Likely posterior malleolus fracture. Patient also has fracture of the proximal phalanx of the left first toe. See final radiology reports for details. On reassessment, patient remains in stable condition. I did discuss patient's case with SOL Pace with Dr. Li's orthopedic service. She agrees with plan to place patient in a short leg splint with stirrups and to follow-up tomorrow or Sunday morning. Patient was placed into a short leg splint with stirrups. See procedure note for details. Patient tolerated this well and had no numbness or tingling or color changes to his toes. Will prescribe a short course of oxycodone for pain and recommended continue Tylenol. Patient to call orthopedic office to schedule time early next week for follow-up appointment as he says he cannot go tomorrow due to other doctor appointments. Patient was given strict return precautions and provided crutches. All questions were answered. He was then discharged from the emergency department in stable condition. Procedures Orthopedic Splinting/Casting Injury #1: Side: left Lower Extremity Injury Location: lower leg Lower Extremity Immobilizer: posterior splint and stirrup splint Other Orthopedic Equipment: crutches Post Cast/Splinting Neuro Status: intact Post Cast/Splinting Vasc Status: intact Critical Care Critical Care Time Critical Care Time: No
[2025-09-23] MEDS: OXYCODONE 5MG IMMEDIATE RELEASE TABLET 5 MG PO ×2 (09:27→11:05)
[2025-09-23] MEDS: ONDANSETRON 4MG ODT 4 MG SL (09:28)
--- OUTSIDE RECORDS SUMMARY | 2025-09-23 09:38 | XMS_ITS | Patient Health Record ---
Author Organization [facility] Address [address] [place] [address] Care Team Providers Care Media Consultant Name Role Phone UNKNOWN, PCP Primary Care Provider JULIEN Sandoval Unavailable Unavailable Allergies No Known Allergies Reason For Referral No Information Medications Medication SIG (Take, Route, Frequency, Duration) Notes Start Date End Date Status Carvedilol 25 MG 1 tablet with food Orally Twice a day Active Digoxin 125 MCG 1 tablet Orally Active Atorvastatin Calcium 80 MG 1 tablet Oral ly Once a day Active hydroCHLOROthiazide 12.5 MG 1 capsule in the morning Orally Once a day Active Vascepa 1 GM 2 capsules with meal s Orally Twice a day Active Xarelto 20 MG 1 tablet with food Orally Once a day Active Fetzima 80 MG 1 capsule Orally Onc e a day Active Biktarvy 50-200-25 MG 1 Tablet Orally On ce daily Active Multivitamin - 1 tablet Orally Once a day; Duration: 30 day(s) Active Clopidogrel Bisulfate 75 MG 1 tablet Ora lly Once a day Active Lisinopril 40 MG 1 tablet Orally Once a day Active Verapamil HCl ER 240 MG 1 capsule Orally Once a day Active buPROPion HCl ER (XL) 300 MG 1 tablet in the morning Orally Once a day Active Allopurinol 100 MG 1 tablet Orally Once a day Active Ezetimibe 10 MG 1 tablet Orally Once a day Active Social History Tobacco Use: Social History Observation Description Date Details (start date - stop date) Current Smoker NA - NA Tobacco Use (smoking): Question Answer Notes Are you a current smoker How often do you smoke cigarettes? every day How many cigarettes a day do you smoke? -20 Alcohol Screening: Question Answer Notes Did you have a drink contain ing alcohol in the past year? Yes How often did you have a dri nk containing alcohol in the past year? 2 to 4 times a month (2 points) Points 2 Interpretation Negative Problems Problem Type SNOMED Code ICD Code Onset Dates Problem Status W/U Status Risk Notes Problem Essential hypertension (14924130) Essential (primary) hypertension (I10) Active confirmed Problem Cardiac pacemaker in situ (170469100) Pacemaker (Z95.0) Active confirmed Problem Hyperlipidaemia (05413213) Hyperlipidemia, unspecified hyperlipidemia type (E78.5) Active confirmed Problem Multiple premature ventricular complexes (disorder) (980772852) PVCs (premature ventricular contractions) (I49.3) Active confirmed Problem Sinus node dysfunction (29969755) Sinus node dysfunction (I49.5) Active confirmed Problem Gout (65395214) Gout, unspecifie d cause, unspecified chronicity, unspecified site (M10.9) Active confirmed Problem Human immunodeficiency virus infection (62760066) HIV infection, unspecified symptom status (B20) Active confirmed Problem Persistent atrial fibrillation (957995996) Persistent atrial fibrillation (I48.19) Active confirmed Problem Atherosclerotic heart disease of kiana coronary artery without angina pectoris (823871675231801) Coronary artery disease involving kiana coronary artery of kiana heart, unspecified whether angina present (I25.10) Active confirmed Plan Of Treatment Future Test Test Name Order Date CCL COMP EPS W/INDUCTION ATTEMPT (88281) 12/29/2022 CT PULMONARY VEIN STUDY (CARPULVNMP) 755 72 12/29/2022 Insurance Providers Payer Name Payer Address Payer Phone Subscriber Number Group Number Insured Name Patient Relationship to Insured Coverage Start Date Coverage End Date [employer] MED[employer]ARE [employer]AGE [address] [place] [address] [id number] THIEN DUKES Self - patient is the insured Medical (General) History Medical History History ICD Code HTN sinus node dysfunction cardiac pacemaker hyperlipidemia CAD ID x 3 (9 stents as of 2022) right bundle branch block ventricular premature beats AV junctional rhythm HIV positive peripheral venous insufficiency Surgical History Surgery Date(Month/Year) lumbar laminectomy PCI 05/03/2019 PVC ablation 02/09/2014 PCI 02/09/2010 PCI 02/02/2010 [employer] ICD Hospitalization History Reason Date(Month/Year) see surgical history
--- OUTSIDE RECORDS SUMMARY | 2025-09-23 09:38 | XMS_ITS | Encounter Summary ---
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 Name Role Phone Unavailable Primary Care Provider Unavailabl e Reason for Referral * Radiology Services (Routine) - Pending Review Specialty Diagnoses / Procedures Referred By Contac t Referred To Contact Diagnoses Persistent atrial fibrillation (HCC) Procedures CT Angiogram Chest W WO Contrast Larry Lezama MD [address] [place] [address] [place] [address] Phone: tel: fax: Referral ID Status Reason Start Date Expiration Date V isits Requested Visits Authorized [id number] Pending Review 05/11/2025 05/11/2026 1 1 Reason for Visit * Reason Onset Date Comments Other 05/11/2025 Encounter Details Date Type Department Care Team (Late st Contact Info) Description 05/11/2025 Telephone [facility] [address], [address] [place] [address] Larry Lezama MD [address] [place] [address] [place] [address] Other Social History Tobacco Use Types Packs/Day Years Used Date Smoking Tobacco: Every Day Cigarettes PHQ-2 Answer Date Recorded PHQ-2 SCORE 0 02/05/2025 Sex and Gender Information Value Date Recorded Sex Assigned at Not on file Legal Sex Male 4:09 PM EDT Gender Identity Not on file Sexual Orientation Not on file documented as of this encounter Miscellaneous Notes * Telephone Encounter - Tanner Gonzales PA-C - 05/11/2025 3:01 PM EDT Ordered and faxed via [facility]. * Telephone Encounter - Karlie Read LPN - 05/11/2025 2:48 PM EDT Spoke with patient and advised that he will get contacted closer to procedure date for time of arrival- voiced understanding. * Telephone Encounter - Antonette Lozano - 05/11/2025 11:47 AM EDT Pt is asking if he can have a CTA w /wo contrast done at [facility] ? Pt is asking us to fax CTA order to [facility]. Ablation is scheduled for 05/19. Please advise. [phone], let pt know when faxed , [facility] Pt is also asking what time to be here for ablation 05/19. documented in this encounter Plan of Treatment Upcoming Encounters Date Type Department Care Team (Late st Contact Info) Description 09/24/2025 11:00 AM EST Office Visit [facility] [address], [address] [place] [address] Tanner Gonzales PA-C [address] [place] [address] Larry Lezama MD [address] [place] [address] Scheduled Orders Name Type Priority Associated Diagnoses Orde r Schedule CT Angiogram Chest W WO Contrast Imaging Routine Persistent atrial fibrillation (HCC) 1 Occurrences starting 05/11/2025 until 05/11/2026 documented as of this encounter Visit Diagnoses Diagnosis Persistent atrial fibrillation (HCC)- Primary Atrial fibrillation documented in this encounter
--- OUTSIDE RECORDS SUMMARY | 2025-09-23 09:39 | XMS_ITS | Clinical Summary ---
Author Organization [facility] Address [address] [place] [address] Care Team Providers Care Talent Acquisition Lead Name Role Phone Unavailable Primary Care Provider [...] mg by mouth Twice a day. Active amLODIPine (NORVASC) 10 mg tablet Take 10 mg by mouth Once Daily. Active amiodarone (CORDARONE) 200 mg tabletIndicati ons:PAF (paroxysmal atrial fibrillation) (HCC) Take 0.5 Tabs by mouth Once Daily. Active Active Problems Problem Noted Date Diagnosed Date Malfunction of electrode lead of cardiac pacemak er 02/06/2025 PAF (paroxysmal atrial fibrillation) 02/05/2025 Tachycardia 02/04/2025 Persistent atrial fibrillation 02/04/2025 S/P ablation of atrial fibrillation 02/04/2025 Overview (02/04/2025): X 2 in [place] Asymptomatic HIV infection, with no history of HIV-related illness 02/04/2025 Encounters Date Type Department Care Team Description 09/21/2025 Travel 06/26/2025 1:00 PM EDT Office Visit [facility] [address], [address] [place] [address] Tanner Gonzales PA-C PAF (paroxysmal atrial fibrillation) (HCC) (Primary Dx); S/P ablation of atrial fibrillation; Typical atrial flutter ([facility]); S/P ablation of atrial flutter 06/26/2025 Travel from Last 3 Months Family History Medical History Relation Name Comments Diabetes Father Hypertension Father Stroke Father Cancer Mother Heart Disease Mother Cancer Sister 1 Ms Sister 2 Relation Name Status Comments Father Mother Alive Sister 1 Alive Sister 2 Alive Social History Tobacco Use Types Packs/Day Years Used Date Smoking Tobacco: Every Day Cigarettes Tobacco Cessation:Ready to Q uit: Not Asked; Counseling Given: Not Answered Alcohol Use Standard Drinks/Week Comments Yes 0 (1 standard drink = 0.6 oz pur e alcohol) RARELY PHQ-2 Answer Date Recorded PHQ-2 SCORE 0 02/05/2025 Humiliation, Afraid, Rape, and Kick questionnair e Answer Date Recorded Within the last year, have y ou been afraid of your partner or ex-partner? No 05/19/2025 Within the last year, have y ou been humiliated or emotionally abused in other ways by your partner or ex-partner? No Within the last year, have y ou been kicked, hit, slapped, or otherwise physically hurt by your partner or ex-partner? No 05/19/2025 Within the last year, have y ou been raped or forced to have any kind of sexual activity by your partner or ex-partner? No 05/19/2025 Hunger Vital Sign Answer Date Recorded Within the past 12 months, y ou worried that your food would run out before you got the money to buy more. Never true 05/19/20 25 Within the past 12 months, t he food you bought just didn't last and you didn't have money to get more. Never true 05/19/2025 PRAPARE - Transportation Answer Date Re corded In the past 12 months, has l ack of transportation kept you from medical appointments or from getting medications? No 05/08 In the past 12 months, has l ack of transportation kept you from meetings, work, or from getting things needed for daily living? No 05/19/2025 Housing Stability Vital Sign Answer Andrew e Recorded In the last 12 months, was t here a time when you were not able to pay the mortgage or rent on time? No 05/19/2025 Number of Times Moved in the Last Year Not on fi le 05/19/2025 At any time in the past 12 m [facility], were you homeless or living in a mcc (including now)? No 05/19/2025 [facility] Utilities Answer Date Recorded In the past 12 months has th e electric, gas, oil, or water company threatened to shut off services in your home? No 05/19/2025 Sex and Gender Information Value Date Recorded Sex Assigned at Not on file Legal Sex Male 4:09 PM EDT Gender Identity Not on file Sexual Orientation Not on file Last Filed Vital Signs Vital Sign Reading Time Taken Comments Blood Pressure 130/82 06/26/2025 12:54 PM EDT Pulse 94 06/26/2025 12:54 PM EDT Temperature 36.7 C (98.1 F) 05/19/2025 12:27 PM EDT Respiratory Rate 18 06/26/2025 12:54 PM EDT Oxygen Saturation 96% 06/26/2025 12:54 PM EDT Inhaled Oxygen Concentration - - Weight 108.4 kg (239 lb) 06/26/2025 12:54 PM EDT Height 182.9 cm (6') 05/18/2025 2:58 PM EDT Body Mass Index 32.41 05/18/2025 2:58 PM EDT Plan of Treatment Upcoming Encounters Date Type Department Care Team (Late st Contact Info) Description 09/24/2025 11:00 AM EST Office Visit [facility] [address], [address] [place] [id number] Tanner Gonzales, PAMarryC [address] [facility] [address] [place] [address] Larry Lezama MD [address] [place] [address] [address] [place] [address] Health Maintenance Due Date Last Done Comments COLOGUARD 1965 COLONOSCOPY 1965 Colorectal Screening Combination 1965 FIT 1965 HEP C SCREENING 1965 SIGMOIDOSCOPY 1965 ANNUAL WELLNESS EXAM 02/13/1968 DTAP/TDAP/TD VACCINE (1 - Tdap) 02/13/1984 Shingles Vaccine (Shingrix) (1 of 2) 2015 INFLUENZA VACCINE (#1) 2025 09/01/2022 CT Colonography Completed HEP A VACCINE Aged Out No longer elig ible based on patient's age to complete this topic HIB VACCINE Aged Out No longer eligi ble based on patient's age to complete this topic ROTOVIRUS VACCINE Aged Out No longer eligible based on patient's age to complete this topic Procedures Procedure Name Priority Date/Time Associated Diagnosis Comments EKG 12-LEAD Routine 06/26/2025 1:03 PM EDT PAF (paroxysmal atrial fibrillation) (HCC) from Last 3 Months Results * 12 Lead EKG Same Visit (06/26/2025 1:03 PM EDT) 06/26/2025 1:03 PM EDT Narrative EPIPHANY - 07/01/2025 8:49 AM EDT [facility] [address] [address] Test Date: 2025-06-26 Pat Name: DENIZ MCKEON Department: [facility] Room: Gender: Male Kiln Remover: : 1965 Requested By: TANNER Flores Order Number: [id number] Jessica MD: Latrice Taveras MD Measurements Intervals [place] Rate: 76 P: 0 VT: 0 QRS: -28 QRSD: 176 T: 34 QT: 434 QTc: 491 Interpretive Statements: sinus rhythm with atrial paced complexes BORDERLINE LEFT AXIS DEVIATION RIGHT BUNDLE BRANCH BLOCK Electronically Signed On 07-01-2025 08:49:18 EDT by Latrice Taveras MD Procedure Note Latrice Taveras MD - 07/01/2025 [facility] [place] [address] Test Date: 2025-06-26 Pat Name: DENIZ ERNST Department: [facility] Room: Gender: Male Kiln Remover: : 1965 Requested By: TANNER Flores Order Number: [id number] Jessica MD: Latrice Taveras MD Measurements Intervals [place] Rate: 76 P: 0 VT: 0 QRS: -28 QRSD: 176 T: 34 QT: 434 QTc: 491 Interpretive Statements: sinus rhythm with atrial paced complexes BORDERLINE LEFT AXIS DEVIATION RIGHT BUNDLE BRANCH BLOCK Electronically Signed On 07-01-2025 08:49:18 EDT by Latrice Taveras MD us Tanner MANN-C EKG ORDERABLES Final Resul t Performing Organization Address City/State/[facility] Co de Phone Number [facility] from Last 3 Months Insurance [employer] MEDICARE Advance Directives * Full Code (Latest Code Status on File) Date Activated Date Inactivated Comments 05/19/2025 7:26 AM 05/19/2025 7:10 PM
--- OUTSIDE RECORDS SUMMARY | 2025-09-23 09:39 | XMS_ITS | Encounter Summary ---
Author Organization [facility] Address [address] [facility] [place] [address] Care Team Providers Care Asbestos Brake Lining Finisher Name Role Phone Unavailable Primary Care Provider Unavailabl e Encounter Details Date Type Department Care Team (Late st Contact Info) Description 05/14/2025 Orders Only [facility] [address], [address] [place] [address] Larry Lezama MD [address] [place] [address] [address] [place] [id number] Pre-procedural cardiovascular examination (Primary Dx) Social History Tobacco Use Types Packs/Day Years Used Date Smoking Tobacco: Every Day Cigarettes PHQ-2 Answer Date Recorded PHQ-2 SCORE 0 02/05/2025 Sex and Gender Information Value Date Recorded Sex Assigned at Not on file Legal Sex Male 4:09 PM EDT Gender Identity Not on file Sexual Orientation Not on file documented as of this encounter Plan of Treatment Upcoming Encounters Date Type Department Care Team (Late st Contact Info) Description 09/24/2025 11:00 AM EST Office Visit [facility] [place] [address] [place] [address], [address] [place] [address] Tanner Gonzales, BHANU [address] [place] [address] [address] [place] [address] Larry Lezama MD [address] [place] [address] [place] [address] Scheduled Orders Name Type Priority Associated Diagnoses Orde r Schedule CBC w/Differential Lab Today Pre-procedural cardiovascular examination Expected: 05/14/2025, Expires: 05/14/2026 Basic Metabolic Panel Lab Today Pre-procedural cardiovascular examination Expected: 05/14/2025 (Approximate), Expires: 05/14/2026 Type and Screen Lab Routine Pre-procedural cardiovascular examination Expected: 05/14/2025 (Approximate), Expires: 05/14/2026 RBC L/R, 4 Units Blood Bank Routine Pre-procedural cardiovascular examination Expected: 05/14/2025 (Approximate), Expires: 05/14/2026 documented as of this encounter Visit Diagnoses Diagnosis Pre-procedural cardiovascular examination- Primary Pre-operative cardiovascular examination documented in this encounter
--- OUTSIDE RECORDS SUMMARY | 2025-09-23 09:39 | XMS_ITS | Clinical Summary ---
Author Organization [facility] Address [address] [place] [address] Care Team Providers Care Yeast Cake Cutter Name Role Phone No, Pcp PIPE RECOVERY SPECIALIST Primary Care Provider Unavailabl e Social History Tobacco Use Types Packs/Day Years Used Date Smoking Tobacco: Never Assessed Sex and Gender Information Value Date Recorded Sex Assigned at Not on file Legal Sex Male 1:09 PM EDT Gender Identity Not on file Sexual Orientation Not on file Plan of Treatment Not on file Medical Devices Not on file Care Teams Yeast Cake Cutter Relationship Specialty Start Date End Date No, Pcp, PIPE RECOVERY SPECIALIST N/A Do not use PCP - General Family Medicine 06/15/20
--- OUTSIDE RECORDS SUMMARY | 2025-09-23 09:39 | XMS_ITS | Encounter Summary ---
Author Organization [facility] Address [address] [place] [address] Care Team Providers Care Coordinate Measuring Machine Operator Name Role Phone Unavailable Primary Care Provider Unavailabl e Encounter Details Date Type Department Care Team (Latest Contact Info) Description 09/21/2025 Travel Social History Tobacco Use Types Packs/Day Years Used Date Smoking Tobacco: Every Day Cigarettes Alcohol Use Standard Drinks/Week Comments Yes 0 [...] any time in the past 12 m [facility], were you homeless or living in a mcc (including now)? No 05/19/2025 [facility] Utilities Answer Date Recorded In the past [...] 11:00 AM EST Office Visit [facility] [address] [place] , [address] [place], [place] [id number] Tanner Gonzales PAMarryC [address] [facility] [address] [place] [address] Larry Lezama MD [address] [place] [address] [place] [address] documented as of this encounter Visit Diagnoses Not on filedocumented in this encounter
--- NOTE | 2025-09-23 11:25 | PC.NURSE ---
paged Dr. Li. awaiting call back
== END 2025-09-23 13:24 | disposition home or self-care (01) ==
PROVIDERS: Emergency Provider Student in an Organized Health Care Education/Training Program
DX: S82.455A Nondisplaced comminuted fracture of shaft of left fibula, initial encounter for closed fracture (principal); S92.412A Displaced fracture of proximal phalanx of left great toe, initial encounter for closed fracture; W00.0XXA Fall on same level due to ice and snow, initial encounter
CPT/HCPCS: 29515; 73590; 73600; 73620; 99284; 99285; Q0162